=== PATIENT | female | born 1990 | race American Indian/Alaskan Native ===

== ENCOUNTER 2016-12-03 21:56 | Emergency (ER) | payer OTHER ==
[2016-12-03] MEDS ORDERED: TYLENOL PO ONE (22:34)
[2016-12-03] MEDS ORDERED: TYLENOL ONE (22:38)
[2016-12-04 11:39] VITALS: BP 119/76
== END 2016-12-04 04:29 | disposition left against medical advice (07) ==
LOC: ED 21:56
DX: R51 Headache (principal); Z53.21 Procedure and treatment not carried out due to patient leaving prior to being seen by health care provider

== ENCOUNTER 2017-03-05 19:45 | Emergency (ER) | payer OTHER ==
[2017-03-05 22:20] LABS: HCG Qualitative,Urine Negative (Negative)
[2017-03-06] MEDS ORDERED: MUCINEX ER PO ONE (01:17)
[2017-03-06] MEDS ORDERED: TORADOL IM ONE (01:17)
--- NOTE | 2017-03-06 01:23 | Emergency Department Report ---
HPI - General Chief Complaint: Headache Time Seen by Provider: 03/06/17 01:00 - HPI HPI: The patient is 26-year-old female whom presents for evaluation of headache. The patient reports on and off headache for the past 2 days, currently 5/10 in severity, concentrated in the frontal area, pressure-like in quality, exacerbated with sneezing and movement. She reports associated nasal congestion. The patient denies fever, head injury, neck pain, neck stiffness, vision or hearing changes, smell or taste changes, paresthesias, facial drooping , slurred speech, seizure-like activity, urine or bowel incontinence or retention, or other focal neurological deficit. ED Past Medical Hx - Past Medical History Hx Hypertension: No Hx Kidney Stones: Yes Additional medical history: Obesity - Surgical History Past Surgical History?: No - Social History Smoking Status: Never Smoker Substance Use Type: None - Medications Home Medications: Home Medications Medication Instructions Recorded Confirmed Last Taken Type Ibuprofen [Motrin 800 MG tab] 800 mg PO Q8HR PRN #30 tablet 09/04/14 10/01/14 Rx Dicyclomine [Bentyl] 20 mg PO QID #20 tablet 10/02/14 Unknown Rx Nitrofurantoin [place]/M-Cryst 100 mg PO Q12HR #14 capsule 10/02/14 Unknown Rx [Macrobid CAP] Promethazine [Phenergan TAB] 25 mg PO Q6HR PRN #10 tab 10/02/14 Unknown Rx Ondansetron [Zofran Odt] 4 mg PO Q8HR PRN #15 tab.rapdis 03/17/15 Unknown Rx traMADol [Ultram 50 MG tab] 50 mg PO Q6HR PRN #15 tablet 03/17/15 Unknown Rx medroxyPROGESTERone ACETATE 10 mg PO QDAY #10 tablet 05/26/15 Unknown Rx [Provera] Skin Emollient [Aquaphor] 0 gm TP BID PRN #1 tube 09/21/15 Unknown Rx Naproxen [Naproxen TAB] 250 mg PO BID PRN #20 tablet 04/07/16 Unknown Rx Azithromycin [Zithromax Z-STEPHEN] 250 mg PO QDAY #6 tablet 03/06/17 Unknown Rx Butalb/Acetaminophen/Caffeine 1 cap PO Q6HR PRN #15 cap 03/06/17 Unknown Rx [Fioricet 50-300-40 mg CAP] Ibuprofen [Motrin] 800 mg PO Q8HR PRN #15 tablet 03/06/17 Unknown Rx guaiFENesin [Mucinex] 600 mg PO BID PRN #20 tab.er.12h 03/06/17 Unknown Rx ED Review of Systems ROS: Stated complaint: H/A Other details as noted in HPI Constitutional: denies: fever ENT: denies: throat or neck pain Respiratory: denies: cough, shortness of breath Cardiovascular: denies: chest pain Endocrine: denies unexplained weight loss or gain Gastrointestinal: denies: abdominal pain, nausea Genitourinary: denies: dysuria Musculoskeletal: denies: leg swelling Skin: denies: rash Neurological: reports headache Hematological/Lymphatic: denies: easy bleeding or easy bruising Psych: denies sadness or hopelessness Physical Exam - Physical Exam Vital Signs: Vital Signs 03/05/17 21:27 Temperature 98.5 F Pulse Rate 98 H Respiratory 16 Rate Blood Pressure 144/73 O2 Sat by Pulse 100 Oximetry Physical Exam: General: well-nourished, well-developed, no acute distress Head: Normocephalic, atraumatic Eyes: normal sclera ENT: Mucous membranes are pink and moist Neck: trachea midline, neck supple, No neck stiffness, no cervical adenopathy Respiratory: Breath sounds equal bilaterally, no wheezing, rales, or rhonchi Cardio: S1 and S2 present, no murmurs, rubs, gallops, capillary refill is brisk Abdomen: Normoactive bowel sounds, soft abdomen, no rigidity, no guarding or rebound tenderness Chest WALL/Back: No tenderness to palpation of the chest wall, no CVA tenderness with percussion Musc: No pitting edema Skin: No rash Neuro: alert oriented x4, normal cognition, speech normal, PERRL, EOM intact, no facial drooping, no uvula or tongue deviation on protrusion, no deficit with rotation of neck or shoulder shrug, no obvious gross motor deficit in the upper or lower extremities with flexion or extension at the shoulder, elbow, wrist, hip, knee, or ankle bilaterally, no obvious gross sensation deficit to crude touch or 2 pt discrimination, 2+ symmetric reflexes on DTR testing, no dysmetria , dysdiadochokinesia, no coordination deficit with qlypus-[id number] or heel-to- bearden testing,, Babinski downgoing, romberg negative, patient able to to ambulate without abnormal gait Psych: Normal affect ED Course Vital Signs 03/05/17 21:27 Temperature 98.5 F Pulse Rate 98 H Respiratory 16 Rate Blood Pressure 144/73 O2 Sat by Pulse 100 Oximetry ED Medical Decision Making - Medical Decision Making The patient was seen and examined by myself. The patient is placed on a groundwater monitoring technician and continuous pulse ox. On initial evaluation, the patient was found to be in no distress. As there are no neuro deficits or other findings on examination concerning for acute intracranial disease process, and as the patient states that symptoms are consistent with previous headaches, a CAT scan of the head will not be obtained at this time. The patient is given pain medicine for her headache. The patient was reevaluated and reported that their symptoms were markedly improved. The patient is stable for discharge with outpatient follow-up. The patient is given follow-up and return instructions. The patient expressed understanding and agreed with the plan. The patient is discharged in stable condition. Critical care attestation.: If time is entered above; I have spent that time in minutes in the direct care of this critically ill patient, excluding procedure time. ED Disposition Clinical Impression: Acute non intractable tension-type headache, Dehydration, mild Sinusitis, acute Qualifiers: Sinusitis location: frontal Recurrence: non-recurrent Qualified Code(s): J01.10 - Acute frontal sinusitis, unspecified Disposition: - TO HOME OR SELFCARE Is pt being admited?: No Does the pt Need Aspirin: No Condition: Stable Instructions: Sinusitis (ED), Acute Headache (ED), Migraine Headache (ED) Prescriptions: Azithromycin [Zithromax Z-STEPHEN] 250 mg PO QDAY #6 tablet Butalb/Acetaminophen/Caffeine [Fioricet 50-300-40 mg CAP] 1 cap PO Q6HR PRN #15 cap PRN Reason: Pain guaiFENesin [Mucinex] 600 mg PO BID PRN #20 tab.er.12h PRN Reason: Congestion Ibuprofen [Motrin] 800 mg PO Q8HR PRN #15 tablet PRN Reason: Pain Referrals: ARIA SALDAÑA MD [Primary Care Provider] - 3-5 Days Time of Disposition: 01:18
[2017-03-06] MEDS: TYLENOL #3 PO ONE ×2 (01:40→01:45)
[2017-03-06 03:25] VITALS: BP 139/84
== END 2017-03-06 01:45 | disposition home or self-care (01) ==
LOC: ED 19:45
DX: J01.10 Acute frontal sinusitis, unspecified (principal); E86.0 Dehydration; G44.209 Tension-type headache, unspecified, not intractable
CPT/HCPCS: 81025; 96372; 99284; J1885

== ENCOUNTER 2017-11-27 21:14 | Emergency (ER) | payer OTHER ==
[2017-11-27 21:33] VITALS: BP 141/91
[2017-11-27 22:32] LABS: HCG Qualitative,Urine Negative (Negative)
--- NOTE | 2017-11-27 23:41 | XRay Report ---
FINAL REPORT PROCEDURE: XR HAND 2V RT TECHNIQUE: AP and lateral view of the right hand was obtained. HISTORY: pain COMPARISON: No prior studies are available for comparison. FINDINGS: No fracture or dislocation is seen. Bone density and joint spaces appear normal. No radiopaque foreign bodies are visualized. IMPRESSION: Negative exam.
--- NOTE | 2017-11-27 23:44 | XRay Report ---
FINAL REPORT PROCEDURE: AP and lateral view left knee TECHNIQUE: AP and lateral view of the left knee was obtained. HISTORY: pain/swelling COMPARISON: None FINDINGS: No fracture or dislocation is seen. Moderate-sized joint effusion is present. Small marginal osteophytic spurs project in the medial compartment of the knee and also in the patellar femoral joint space consistent with osteoarthritis. No radiopaque foreign bodies are identified. IMPRESSION: Mild osteoarthritis. Moderate-sized joint effusion is present. No other abnormalities are seen.
--- NOTE | 2017-11-28 00:53 | Emergency Department Report ---
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 pIN has progressively been worsening since onset. ) Severity: moderate Symptoms: Yes Pain with Movement, No Deformity, No Limited Range of Movement, No Numbness, No Weakness, No Swelling, No Bruising/Ecchymosis, No Laceration or Abrasion ED Review of Systems ROS: Stated complaint: LEFT KNEE PAIN, RIGHT HAND PAIN Other details as noted in HPI Constitutional: denies: chills, fever Eyes: denies: eye pain, eye discharge, vision change ENT: denies: ear pain, throat pain Respiratory: denies: cough, shortness of breath, wheezing Cardiovascular: denies: chest pain, palpitations Gastrointestinal: denies: abdominal pain, nausea, diarrhea Musculoskeletal: joint swelling, arthralgia Skin: denies: rash, lesions Neurological: denies: headache, weakness, paresthesias ED Past Medical Hx - Past Medical History Hx Hypertension: No Hx Kidney Stones: Yes Additional medical history: Obesity - Social History Smoking Status: Never Smoker Substance Use Type: None - Medications Home Medications: Home Medications Medication Instructions Recorded Confirmed Last Taken Type Ibuprofen [Motrin 800 MG tab] 800 mg PO Q8HR PRN #30 tablet 09/04/14 10/01/14 Rx Dicyclomine [Bentyl] 20 mg PO QID #20 tablet 10/02/14 Unknown Rx Nitrofurantoin [place]/M-Cryst 100 mg PO Q12HR #14 capsule 10/02/14 Unknown Rx [Macrobid CAP] Promethazine [Phenergan TAB] 25 mg PO Q6HR PRN #10 tab 10/02/14 Unknown Rx Ondansetron [Zofran Odt] 4 mg PO Q8HR PRN #15 tab.rapdis 03/17/15 Unknown Rx traMADol [Ultram 50 MG tab] 50 mg PO Q6HR PRN #15 tablet 03/17/15 Unknown Rx medroxyPROGESTERone ACETATE 10 mg PO QDAY #10 tablet 05/26/15 Unknown Rx [Provera] Skin Emollient [Aquaphor] 0 gm TP BID PRN #1 tube 09/21/15 Unknown Rx Naproxen [Naproxen TAB] 250 mg PO BID PRN #20 tablet 04/07/16 Unknown Rx Azithromycin [Zithromax Z-STEPHEN] 250 mg PO QDAY #6 tablet 03/06/17 Unknown Rx Butalb/Acetaminophen/Caffeine 1 cap PO Q6HR PRN #15 cap 03/06/17 Unknown Rx [Fioricet 50-300-40 mg CAP] Ibuprofen [Motrin] 800 mg PO Q8HR PRN #15 tablet 03/06/17 Unknown Rx guaiFENesin [Mucinex] 600 mg PO BID PRN #20 tab.er.12h 03/06/17 Unknown Rx Ketorolac [Toradol] 10 mg PO Q8HR PRN #12 tablet 11/28/17 Unknown Rx Upper Extremity Exam - Exam General: Vital signs noted. No distress. Alert and acting appropriately. Head and Torso: No HEENT Abnormality, No Neck Tenderness, No Chest/Lungs Abnormality, No Abdominal Tenderness, No Back Tenderness Shoulder Exam: Yes Normal Range of Motion in Shoulder, No Shoulder Tenderness, No Clavicle Tenderness, No Shoulder Deformity, No AC Joint Tenderness Arm Exam: No Arm/Humerus Tenderness, No Arm Deformity Elbow: No Elbow Tenderness, No Normal Range of Motion in Elbow, No Elbow Deformity Forearm: No Forearm Tenderness, No Forearm Deformity, No Pain with Pronation, No Pain with Supination Wrist: Yes Wrist Tenderness, Yes Normal ROM in Wrist, No Wrist Deformity, No Snuffbox Tenderness, No Pain with Axial Thumb Compression (pain with Mazin 's maneuver. neg tinel sign. ) Hand: Yes Normal ROM in Digit(s), No Hand Tenderness, No Hand Deformity, No Digit Tenderness, No Digit(s) Deformity, No Tendon Dysfunction CMS Exam: No Broken Skin, No Normal Distal Pulses, No Normal Capillary Refill, No Normal Distal Sensation ED Course Vital Signs 11/27/17 11/27/17 11/27/17 21:19 21:22 21:23 Temperature 98.4 F 98.4 F 98.4 F Pulse Rate 109 H 109 H Respiratory 18 18 18 Rate Blood Pressure 149/91 141/91 Blood Pressure 141/91 149/91 [Right] O2 Sat by Pulse 98 98 Oximetry Critical care attestation.: If time is entered above; I have spent that time in minutes in the direct care of this critically ill patient, excluding procedure time. ED Disposition Clinical Impression: Tenosynovitis of finger Disposition: DC-01 TO HOME OR SELFCARE Is pt being admited?: No Does the pt Need Aspirin: No Condition: Stable Instructions: Tenosynovitis (ED) Prescriptions: Ketorolac [Toradol] 10 mg PO Q8HR PRN #12 tablet PRN Reason: Pain Referrals: PRIMARY CARE, [Primary Care Provider] - 3-5 Days ANISH RUFF MD [Staff Physician] - 3-5 Days
== END 2017-11-28 01:13 | disposition home or self-care (01) ==
LOC: ED 21:14
DX: S63.91XA Sprain of unspecified part of right wrist and hand, initial encounter (principal); M25.562 Pain in left knee; X50.9XXA Other and unspecified overexertion or strenuous movements or postures, initial encounter; Y93.89 Activity, other specified; Y92.89 Other specified places as the place of occurrence of the external cause; Y99.0 Civilian activity done for income or pay
CPT/HCPCS: 81025; 99284

== ENCOUNTER 2018-05-28 22:23 | Emergency (ER) | payer OTHER ==
[2018-05-28 22:41] VITALS: BP 147/79
--- NOTE | 2018-05-28 22:50 | Emergency Department Report ---
Chief Complaint: Sore Throat Stated Complaint: SORE THROAT EAR PAIN Time Seen by Provider: 05/28/18 22:48 - HPI History of Present Illness: pt presents with sore throat that began three days ago has bilateral ear pain (+) congestion, rhinorrhea (+) cough no fever has not taken anything no sick contacts no PMHx no medications non smoker rapid strep sent from triage - Exam Vital Signs: Vital Signs 05/28/18 22:40 Temperature 98.4 F Pulse Rate 97 H Respiratory 18 Rate Blood Pressure 147/79 [Left] O2 Sat by Pulse 100 Oximetry MSE screening note: Focused history and physical exam performed. Due to findings the following was ordered: rapid strep ED Disposition for MSE Condition: Stable
[2018-05-29] MEDS ORDERED: IBUPROFEN PO ONE (01:42)
[2018-05-29] MEDS ORDERED: TRIMOX PO ONE (01:42)
[2018-05-29] MEDS ORDERED: DELTASONE PO ONE (01:42)
--- NOTE | 2018-05-29 03:02 | Emergency Department Report ---
ED ENT HPI - General Chief complaint: Sore Throat Stated complaint: SORE THROAT EAR PAIN Time Seen by Provider: 05/28/18 22:48 Source: patient Mode of arrival: Ambulatory Limitations: No Limitations - History of Present Illness Initial comments: pt presents with sore throat that began three days ago has bilateral ear pain (+) congestion, rhinorrhea (+) cough no fever has not taken anything she no sick contacts no PMHx no medications non smoker rapid strep sent from triage MD complaint: sore throat, ear pain Onset/Timin -: days(s) Location: R ear, L ear, throat Severity: moderate Severity scale (0 -10): 5 Quality: aching Consistency: constant Improves with: none Worsens with: swallowing Associated Symptoms: fever, pain with swallowing, sore throat, tinnitus, rhinorrhea - Related Data Previous Rx's Medication Instructions Recorded Last Taken Type Ibuprofen [Motrin 800 MG tab] 800 mg PO Q8HR PRN #30 tablet 09/04/14 09/30/14 Rx Dicyclomine [Bentyl] 20 mg PO QID #20 tablet 10/02/14 Unknown Rx Nitrofurantoin [place]/M-Cryst 100 mg PO Q12HR #14 capsule 10/02/14 Unknown Rx [Macrobid CAP] Promethazine [Phenergan TAB] 25 mg PO Q6HR PRN #10 tab 10/02/14 Unknown Rx Ondansetron [Zofran Odt] 4 mg PO Q8HR PRN #15 tab.rapdis 03/17/15 Unknown Rx traMADol [Ultram 50 MG tab] 50 mg PO Q6HR PRN #15 tablet 03/17/15 Unknown Rx medroxyPROGESTERone ACETATE 10 mg PO QDAY #10 tablet 05/26/15 Unknown Rx [Provera] Skin Emollient [Aquaphor] 0 gm TP BID PRN #1 tube 09/21/15 Unknown Rx Naproxen [Naproxen TAB] 250 mg PO BID PRN #20 tablet 04/07/16 Unknown Rx Azithromycin [Zithromax Z-STEPHEN] 250 mg PO QDAY #6 tablet 03/06/17 Unknown Rx Butalb/Acetaminophen/Caffeine 1 cap PO Q6HR PRN #15 cap 03/06/17 Unknown Rx [Fioricet 50-300-40 mg CAP] Ibuprofen [Motrin] 800 mg PO Q8HR PRN #15 tablet 03/06/17 Unknown Rx guaiFENesin [Mucinex] 600 mg PO BID PRN #20 tab.er.12h 03/06/17 Unknown Rx Ketorolac [Toradol] 10 mg PO Q8HR PRN #12 tablet 11/28/17 Unknown Rx Amoxicillin/Potassium Clav 1 each PO BID 10 Days #20 tablet 05/29/18 Unknown Rx [Augmentin 875-125 Tablet] Benzocaine/Mentho [Cepacol X 1 each MM Q2H PRN #3 packet 05/29/18 Unknown Rx Strength] Ibuprofen 800 mg PO TID PRN #30 tablet 05/29/18 Unknown Rx Prednisone [predniSONE 10 mg 10 mg PO .TAPER #1 tab.ds.pk 05/29/18 Unknown Rx (6-Day Pack, 21 Tabs)] diphenhydrAMINE [Benadryl CAP] 25 mg PO Q6HR PRN #30 capsule 05/29/18 Unknown Rx Allergies Allergy/AdvReac Type Severity Reaction Status Date / Time milk Allergy Unknown Verified 02/07/16 21:28 ED Dental HPI - General Chief complaint: Sore Throat Stated complaint: SORE THROAT EAR PAIN Time Seen by Provider: 05/28/18 22:48 Source: patient Mode of arrival: Ambulatory Limitations: No Limitations - Related Data Previous Rx's Medication Instructions Recorded Last Taken Type Ibuprofen [Motrin 800 MG tab] 800 mg PO Q8HR PRN #30 tablet 09/04/14 09/30/14 Rx Dicyclomine [Bentyl] 20 mg PO QID #20 tablet 10/02/14 Unknown Rx Nitrofurantoin [place]/M-Cryst 100 mg PO Q12HR #14 capsule 10/02/14 Unknown Rx [Macrobid CAP] Promethazine [Phenergan TAB] 25 mg PO Q6HR PRN #10 tab 10/02/14 Unknown Rx Ondansetron [Zofran Odt] 4 mg PO Q8HR PRN #15 tab.rapdis 03/17/15 Unknown Rx traMADol [Ultram 50 MG tab] 50 mg PO Q6HR PRN #15 tablet 03/17/15 Unknown Rx medroxyPROGESTERone ACETATE 10 mg PO QDAY #10 tablet 05/26/15 Unknown Rx [Provera] Skin Emollient [Aquaphor] 0 gm TP BID PRN #1 tube 09/21/15 Unknown Rx Naproxen [Naproxen TAB] 250 mg PO BID PRN #20 tablet 04/07/16 Unknown Rx Azithromycin [Zithromax Z-STEPHEN] 250 mg PO QDAY #6 tablet 03/06/17 Unknown Rx Butalb/Acetaminophen/Caffeine 1 cap PO Q6HR PRN #15 cap 03/06/17 Unknown Rx [Fioricet 50-300-40 mg CAP] Ibuprofen [Motrin] 800 mg PO Q8HR PRN #15 tablet 03/06/17 Unknown Rx guaiFENesin [Mucinex] 600 mg PO BID PRN #20 tab.er.12h 03/06/17 Unknown Rx Ketorolac [Toradol] 10 mg PO Q8HR PRN #12 tablet 11/28/17 Unknown Rx Amoxicillin/Potassium Clav 1 each PO BID 10 Days #20 tablet 05/29/18 Unknown Rx [Augmentin 875-125 Tablet] Benzocaine/Mentho [Cepacol X 1 each MM Q2H PRN #3 packet 05/29/18 Unknown Rx Strength] Ibuprofen 800 mg PO TID PRN #30 tablet 05/29/18 Unknown Rx Prednisone [predniSONE 10 mg 10 mg PO .TAPER #1 tab.ds.pk 05/29/18 Unknown Rx (6-Day Pack, 21 Tabs)] diphenhydrAMINE [Benadryl CAP] 25 mg PO Q6HR PRN #30 capsule 05/29/18 Unknown Rx Allergies Allergy/AdvReac Type Severity Reaction Status Date / Time milk Allergy Unknown Verified 02/07/16 21:28 ED Review of Systems ROS: Stated complaint: SORE THROAT EAR PAIN Other details as noted in HPI Constitutional: denies: chills, fever Eyes: denies: eye pain, eye discharge, vision change ENT: ear pain, throat pain, congestion Respiratory: denies: cough, shortness of breath, wheezing Cardiovascular: denies: chest pain, palpitations Endocrine: no symptoms reported Gastrointestinal: denies: abdominal pain, nausea, diarrhea Genitourinary: denies: urgency, dysuria, discharge Musculoskeletal: denies: back pain, joint swelling, arthralgia Skin: denies: rash, lesions Neurological: denies: headache, weakness, paresthesias Psychiatric: denies: anxiety, depression Hematological/Lymphatic: denies: easy bleeding, easy bruising ED Past Medical Hx - Past Medical History Hx Hypertension: No Hx Kidney Stones: Yes Additional medical history: Obesity - Social History Smoking Status: Never Smoker Substance Use Type: None - Medications Home Medications: Home Medications Medication Instructions Recorded Confirmed Last Taken Type Ibuprofen [Motrin 800 MG tab] 800 mg PO Q8HR PRN #30 tablet 09/04/14 10/01/14 09/30/14 Rx Dicyclomine [Bentyl] 20 mg PO QID #20 tablet 10/02/14 Unknown Rx Nitrofurantoin [place]/M-Cryst 100 mg PO Q12HR #14 capsule 10/02/14 Unknown Rx [Macrobid CAP] Promethazine [Phenergan TAB] 25 mg PO Q6HR PRN #10 tab 10/02/14 Unknown Rx Ondansetron [Zofran Odt] 4 mg PO Q8HR PRN #15 tab.rapdis 03/17/15 Unknown Rx traMADol [Ultram 50 MG tab] 50 mg PO Q6HR PRN #15 tablet 03/17/15 Unknown Rx medroxyPROGESTERone ACETATE 10 mg PO QDAY #10 tablet 05/26/15 Unknown Rx [Provera] Skin Emollient [Aquaphor] 0 gm TP BID PRN #1 tube 09/21/15 Unknown Rx Naproxen [Naproxen TAB] 250 mg PO BID PRN #20 tablet 04/07/16 Unknown Rx Azithromycin [Zithromax Z-STEPHEN] 250 mg PO QDAY #6 tablet 03/06/17 Unknown Rx Butalb/Acetaminophen/Caffeine 1 cap PO Q6HR PRN #15 cap 03/06/17 Unknown Rx [Fioricet 50-300-40 mg CAP] Ibuprofen [Motrin] 800 mg PO Q8HR PRN #15 tablet 03/06/17 Unknown Rx guaiFENesin [Mucinex] 600 mg PO BID PRN #20 tab.er.12h 03/06/17 Unknown Rx Ketorolac [Toradol] 10 mg PO Q8HR PRN #12 tablet 11/28/17 Unknown Rx Amoxicillin/Potassium Clav 1 each PO BID 10 Days #20 tablet 05/29/18 Unknown Rx [Augmentin 875-125 Tablet] Benzocaine/Mentho [Cepacol X 1 each MM Q2H PRN #3 packet 05/29/18 Unknown Rx Strength] Ibuprofen 800 mg PO TID PRN #30 tablet 05/29/18 Unknown Rx Prednisone [predniSONE 10 mg 10 mg PO .TAPER #1 tab.ds.pk 05/29/18 Unknown Rx (6-Day Pack, 21 Tabs)] diphenhydrAMINE [Benadryl CAP] 25 mg PO Q6HR PRN #30 capsule 05/29/18 Unknown Rx ED Physical Exam - General Limitations: No Limitations General appearance: alert, in no apparent distress - Head Head exam: Present: atraumatic, normocephalic - Eye Eye exam: Present: normal appearance, PERRL, EOMI Pupils: Present: normal accommodation - ENT ENT exam: Present: mucous membranes moist - Expanded ENT Exam Expanded Ear exam: Present: normal external inspection TM/Canal exam: Erythema: Right TM, Left TM Mouth exam: Absent: trismus Throat exam: Positive: tonsillar erythema, tonsillomegaly, tonsillar exudate, R peritonsillar mass, other (uvula mild no swellig no stridor ). Negative: L peritonsillar mass - Neck Neck exam: Present: normal inspection - Respiratory Respiratory exam: Present: normal lung sounds bilaterally. Absent: respiratory distress, wheezes, stridor, chest wall tenderness - Cardiovascular Cardiovascular Exam: Present: regular rate, normal rhythm, normal heart sounds. Absent: systolic murmur, diastolic murmur, rubs, gallop - GI/Abdominal GI/Abdominal exam: Present: soft, normal bowel sounds - Rectal Rectal exam: Present: deferred - Extremities Exam Extremities exam: Present: normal inspection, full ROM, normal capillary refill. Absent: tenderness - Back Exam Back exam: Present: normal inspection. Absent: CVA tenderness (R), CVA tenderness (L) - Neurological Exam Neurological exam: Present: alert, oriented X3, normal gait - Psychiatric Psychiatric exam: Present: normal affect, normal mood - Skin Skin exam: Present: warm, dry, intact, normal color. Absent: rash ED Course Vital Signs 05/28/18 05/28/18 22:40 22:48 Temperature 98.4 F 98.4 F Pulse Rate 97 H 97 H Respiratory 18 20 Rate Blood Pressure 147/79 Blood Pressure 147/79 [Left] O2 Sat by Pulse 100 100 Oximetry ED Medical Decision Making - Lab Data Labs 05/28/18 Unknown Group A Strep Rapid Positive A - Medical Decision Making rapid strep is postitive plan exam pos of aom pharyngitis, sinus pain plan: augmentin ibuprofen, benadryl prednisone follow up with pcp ni 2-3 days return to ed if symptoms worsen pt verbalized agreement and understanding of same. Critical care attestation.: If time is entered above; I have spent that time in minutes in the direct care of this critically ill patient, excluding procedure time. ED Disposition Clinical Impression: Strep throat AOM (acute otitis media) Qualifiers: Otitis media type: serous Laterality: bilateral Recurrence: non-recurrent Qualified Code(s): H65.03 - Acute serous otitis media, bilateral Sinusitis Qualifiers: Sinusitis location: maxillary Chronicity: acute Recurrence: non-recurrent Qualified Code(s): J01.00 - Acute maxillary sinusitis, unspecified Disposition: TO HOME OR SELFCARE Is pt being admited?: No Does the pt Need Aspirin: No Condition: Stable Instructions: Sinusitis (ED), Strep Throat (ED), Otitis Media (ED) Prescriptions: Amoxicillin/Potassium Clav [Augmentin 875-125 Tablet] 1 each PO BID 10 Days #20 tablet diphenhydrAMINE [Benadryl CAP] 25 mg PO Q6HR PRN #30 capsule PRN Reason: Congestion Benzocaine/Mentho [Cepacol X Strength] 1 each MM Q2H PRN #3 packet PRN Reason: Throat Pain Ibuprofen 800 mg PO TID PRN #30 tablet PRN Reason: pain fever Prednisone [predniSONE 10 mg (6-Day Pack, 21 Tabs)] 10 mg PO .TAPER #1 tab.ds.pk Referrals: [facility] [Outside] - 3-5 Days Forms: Work/School Release Form(ED) Time of Disposition: 03:07
== END 2018-05-29 03:10 | disposition home or self-care (01) ==
LOC: ED 22:23
DX: J02.0 Streptococcal pharyngitis (principal); H65.03 Acute serous otitis media, bilateral; J01.00 Acute maxillary sinusitis, unspecified; Z87.442 Personal history of urinary calculi; Z91.011 Allergy to milk products
CPT/HCPCS: 87430; 99283; J7512

== ENCOUNTER 2018-06-23 08:57 | Day surgery (SDC) | payer OTHER ==
[~2018-06-23 08:57] MED LIST: LUGOL'S SOLUTION 5% TP ONE
[2018-06-23] MEDS ORDERED: LACTATED RINGERS 1,000 ML IV SCH (09:40)
[2018-06-23] MEDS ORDERED: SUBLIMAZE IV PRN (09:47)
--- NOTE | 2018-06-23 09:50 | Anesthesia Consultation ---
Anesthesia Consult and Med Hx Date of service: 06/23/18 - Airway Anesthetic Teeth Evaluation: Good ROM Head & Neck: Adequate Mental/Hyoid Distance: Adequate Mallampati Class: Class II Intubation Access Assessment: Probably Good - Pulmonary Exam CTA: Yes - Cardiac Exam Cardiac Exam: RRR - Pre-Operative Health Status ASA Pre-Surgery Classification: ASA2 Proposed Anesthetic Plan: General - Pulmonary Hx Smoking: No Hx Respiratory Symptoms: Yes (nasal congestion; no cough, fevers, or chills) SOB: No - Cardiovascular System Hx Hypertension: No Hx Heart Attack/AMI: No Hx Cardia Arrhythmia: No - Central Nervous System CVA: No Hx Psychiatric Problems: No - Gastrointestinal Hx Gastroesophageal Reflux Disease: No - Endocrine Hx Renal Disease: No Hx Liver Disease: No Hx Insulin Dependent Diabetes: No Hx Non-Insulin Dependent Diabetes: No Hx Thyroid Disease: No - Other Systems Hx Obesity: Yes - Additional Comments Anesthesia Medical History Comments: No prior GA. No FHx anesthetic complications.
--- NOTE | 2018-06-23 09:50 | Anesthesia Day of Surgery ---
Anesthesia Day of Surgery - Day of Surgery Patient Examined: Yes Patient H&P Reviewed: Yes Beta Blockers: Yes
[2018-06-23] MEDS ORDERED: TRANSDERM-SCOP TD NR (10:00)
[2018-06-23] MEDS ORDERED: VERSED IV NR (10:00)
[2018-06-23] MEDS ORDERED: NORCO 5/325 PO PRN (10:30)
[2018-06-23] MEDS ORDERED: DIPRIVAN 10 MG/ML IV ONE (11:22)
[2018-06-23] MEDS ORDERED: SUBLIMAZE ONE (11:22)
[2018-06-23] MEDS ORDERED: MONSEL'S TP ONE (11:23)
[2018-06-23] MEDS ORDERED: XYLOCAINE 1%/ EPI 1:100,000 INFILTRATI ONE (11:23)
[2018-06-23] MEDS ORDERED: ACETIC ACID 3% SOLN TP ONE (11:23)
[2018-06-23] MEDS ORDERED: LUGOL'S SOLUTION 5% TP ONE ×2 (11:28→12:00)
[2018-06-23] MEDS ORDERED: ZOFRAN ONE (11:54)
[2018-06-23] MEDS ORDERED: TORADOL ONE (11:54)
[2018-06-23 12:54] VITALS: BP 135/72
--- NOTE | 2018-06-23 14:54 | Post Anesthesia Evaluation ---
- Post Anesthesia Evaluation Patient Participated: Yes Airway Patent: Yes Stable Respiratory Function: Yes Nausea/Vomiting: No Temp > 96.8F: Yes Pain Manageable: Yes Adequeate Hydration: Yes Anesthesia Complications: No
--- NOTE | 2018-06-23 16:01 | Operative Report ---
Operative Report Operative Report: Preoperative diagnosis: Moderate cervical dysplasia. Postoperative diagnosis: same. Procedure: LEEP of the cervix. Surgeon: Dr. Car. Pedigree Researcher: none Anesthesia: IV sedation EBL: none IVF: RL 1 liter. Procedure details: Risks, benefits, and alternatives of the procedure were discussed in detail with the patient which included but not limited to the risk of infection, hemorrhage requiring blood transfusion, shortened cervix which can result in cervical incompetence and the need for cerclage in future pregnancies. The patient expressed understanding, her questions were answered, and she gave informed consent. The patient was taken to the operating room with an IV fluid infusing ringers lactate. In the operating room, she was placed in a dorsal supine position and given IV sedation with MAC. Then, she was placed on the stirrups in the dorsolithotomy position. The perineum, vagina and cervix were washed and she was prepared and draped in usual sterile fashion. A weighted speculum was placed under posterior vaginal wall. Lugol's solution was applied to the cervix. The dysplastic area were visible. The cautery was used to perform the LEEP procedure and the specimen was sent to pathology. The base of the cervix was cauterized using the Bovie. Monsel's solution was applied. The counts of laps, needles, sponges, and instruments were correct 2. The patient tolerated the procedure well. She was awakened from the anesthesia and taken to the recovery room in a stable condition.
== END 2018-06-23 13:50 | disposition home or self-care (01) ==
LOC: OR 08:57
PROVIDERS: ATTEND Obstetrics & Gynecology
DX: N87.1 Moderate cervical dysplasia (principal); N72 Inflammatory disease of cervix uteri; N88.8 Other specified noninflammatory disorders of cervix uteri; N87.0 Mild cervical dysplasia; E66.9 Obesity, unspecified; Z79.899 Other long term (current) drug therapy; Z87.440 Personal history of urinary (tract) infections; Z98.890 Other specified postprocedural states; Z87.442 Personal history of urinary calculi; Z68.42 Body mass index [BMI] 45.0-49.9, adult
CPT/HCPCS: 57522; 81025; 88307; J1885; J2250; J2405; J2704; J3010; J7120